=== PATIENT | female | born 1955 | race Caucasian/White ===

== ENCOUNTER → 2019-02-04 12:03 | Outpatient (CLI) | payer OTHER, SELFPAY | PROVIDERS: PCP Nurse Practitioner Family; Visit Provider Physician Assistant | DX: R31.9 Hematuria, unspecified (principal) | CPT/HCPCS: 87086 ==

== ENCOUNTER → 2019-02-22 07:10 | Outpatient (CLI) | payer OTHER, SELFPAY ==
[2019-02-22 07:30] LABS: Hematocrit 42.3 % (36-46); Hemoglobin 14.1 g/dL (12.0-16.0); Mean Corpuscular HGB Conc 33.3 % (30-36); Mean Corpuscular Hemoglobin 31.7 PG (26-34); Mean Corpuscular Volume 95.1 fL (80-100); Platelet Count 183 X10^3/uL (150-400); Red Blood Cell Count 4.45 X10^6/uL (4.0-5.2); Red Cell Distribution Width 13.6 % (11.6-14.8); White Blood Cell Count 6.7 X10^3/uL (4.5-11.0)
[2019-02-22 08:55] LABS: HEMOLYSIS < 15 (0-50); Iron 100 ug/dL (37-170)
[2019-02-22 09:02] LABS: Alanine Aminotransferase 13 IU/L (9-52); Albumin 4.2 g/dL (3.5-5.0); Albumin Globulin Ratio 1.4 (1.0-2.8); Alkaline Phosphatase 65 U/L (38-126); Aspartate Aminotransferase 24 IU/L (14-36); BUN Creatinine Ratio 22.5 (6-22); Bilirubin Total 1.2 mg/dL (0.2-1.3); Blood Urea Nitrogen 18 mg/dL (7-17); Calcium 9.7 mg/dL (8.4-10.2); Carbon Dioxide 27 mmol/L (22-32); Chloride 107 mmol/L (98-107); Estimated Glomerular Filt Rate > 60.0 mL/min (>60); Glucose 86 mg/dL (80-110); HEMOLYSIS < 15 (0-50); Sodium 142 mmol/L (137-145); Total Protein 7.2 g/dL (6.3-8.2)
[2019-02-22 09:07] LABS: Percent Iron Saturation 31 % (15-50); Total Iron Binding Capacity 325 ug/dL (265-497); Transferrin 259 mg/dL (206-381)
[2019-02-22 09:19] LABS: Vitamin D 25 Hydroxy (D3) 26.4 ng/mL (30.0-100.0)
[2019-02-22 09:28] LABS: TSH w/ Reflex to FT4 5.32 uIU/mL (0.47-4.68)
[2019-02-22 09:36] LABS: Ferritin 81.8 ng/mL (11.1-264)
[2019-02-22 09:53] LABS: Free T4, Direct Thyroxine 0.98 ng/dL (0.78-2.19)
[2019-02-22 10:06] LABS: Folate 7.9 ng/mL (2.76-20.0); Vitamin B12 385 pg/mL (239-931)
== END ==
PROVIDERS: Visit Provider Nurse Practitioner Family
DX: R53.83 Other fatigue (principal)
CPT/HCPCS: 36415; 80053; 82306; 82607; 82728; 82746; 83540; 83550; 84439; 84443; 85027

== ENCOUNTER → 2020-04-19 09:13 | Outpatient (CLI) | payer OTHER, SELFPAY ==
[2020-04-21 12:09] LABS: COVID19 Sendout Not Detected (Not Detect)
== END ==
PROVIDERS: PCP Registered Nurse Diabetes Educator; Visit Provider Physician Assistant
DX: Z11.59 Encounter for screening for other viral diseases (principal)
CPT/HCPCS: 87635

== ENCOUNTER 2020-04-22 07:04 | Day surgery (SDC) | payer OTHER, SELFPAY ==
[2020-04-22 07:27] VITALS: BP 97/56; PULSE 62; RESP 16; TEMP 36.3; O2SAT 100; BMI 20.1
--- NOTE | 2020-04-22 07:40 | P.OP_ITS ---
Operative Date/Time/Diagnoses Pre-op diagnosis: Nuclear Cataract Left eye Post-op diagnosis: same Procedure & Clinicians Same procedure as scheduled: Yes Surgeon: Brenton Roche Anesthesia Type: MAC +/- and Sedation Operative Notes Procedure in detail: Patient brought to the operating suite. Tetracaine drops placed in the left eye. Patient was prepped and draped in sterile manner. Wire lid speculum was placed in the eye. Betadine drops were placed on the eye. This was irrigated. Lidocaine jelly was placed on the eye. A paracentesis port was created with a side-port blade. 0.1 mL 1% preservative free lidocaine was injected into the anterior chamber. The anterior chamber was deepened with viscoelastic. 2.6 mm keratome was used to create a temporal clear corneal incision. Cystotome and Utrata forceps were used to create continuous tear capsulorrhexis. Balanced salt solution was used to hydro dissect the nucleus. The phacoemulsification handpiece was inserted and the nucleus was removed using the stop and chop technique. The irrigation aspiration handpiece was inserted and the remaining cortex was removed. Anterior chamber was deepened with viscoe lastic. An Martin ZCB00 intraocular lens with a power of 23.0 was injected into the capsular bag. Irrigation aspiration handpiece was inserted and the remaining viscoelastic was removed. Incision was hydrated with balanced salt solution and found to be leak free with pressure with Weck-Samantha sponges. 0.1 mL Vigamox injected anterior chamber. 0.3 mL Kenalog 10 mg was injected subconjunctivally. Lid speculum was removed. The patient left the operating room in excellent condition. Complications: none Post-operative Condition: stable Disposition: same day surgery
--- NOTE | 2020-04-22 07:40 | PM.PREOP ---
Pre-operative Note Interval Note History & Physical reviewed/Exam performed by Physician: Yes Changes to H&P: No
[2020-04-22] MEDS: PROPARACAINE 0.5% OPHTH SOL 2 DROPS EYE-OP (07:41)
[2020-04-22] MEDS: CATARACT EYE COMPOUND (10 DROPS/SYRINGE) 3 DROPS EYE-OP (07:42)
[2020-04-22] MEDS: MOXIFLOXACIN INJ 5 MG/ML VIAL EYE-OP (08:06)
[2020-04-22] MEDS: LIDOCAINE JELLY 2% 5 ML 1 APPLIC TOP (08:06)
[2020-04-22] MEDS: CHONDROIDTIN/SOD HYALURONATE 1.05 ML SYRINGE INTRAOCULA (08:06)
[2020-04-22] MEDS: PHENYLEPHRINE/LIDOCAINE VIAL (OR) 0.2 ML EYE-OP (08:07)
[2020-04-22] MEDS: BALANCED SALT IRRIG SOLN NO.2 500 ML, EPINEPHrine 1 MG IRR (08:07)
[2020-04-22] MEDS: TRIAMCINOLONE 50 MG/5 ML VIAL INJ (08:08)
[2020-04-22] MEDS: TETRACAINE 0.5% OPHTH DROPS 4 ML 2 DROPS EYE-OP (08:08)
[2020-04-22 08:20] VITALS: BP 112/60; PULSE 62; RESP 16; TEMP 36.6; O2SAT 100
== END 2020-04-22 08:34 | disposition home or self-care (01) ==
PROVIDERS: PCP Registered Nurse Diabetes Educator; Referring Provider Registered Nurse Diabetes Educator; Visit Provider Ophthalmology
PROC: (CPT 66984; principal; 2020-04-22 08:15)
DX: H25.12 Age-related nuclear cataract, left eye (principal)
CPT/HCPCS: 66984; J0171; J2250; J3301

== ENCOUNTER → 2020-05-03 14:45 | Outpatient (CLI) | payer OTHER, SELFPAY ==
[2020-05-04 16:19] LABS: COVID19 Sendout Not Detected (Not Detect)
== END ==
PROVIDERS: PCP Registered Nurse Diabetes Educator; Visit Provider Physician Assistant
DX: Z11.59 Encounter for screening for other viral diseases (principal)
CPT/HCPCS: 87635

== ENCOUNTER 2020-05-06 10:52 | Day surgery (SDC) | payer OTHER, SELFPAY ==
[2020-05-06] MEDS: PROPARACAINE 0.5% OPHTH SOL 2 DROPS EYE-OP (11:12)
[2020-05-06] MEDS: CATARACT EYE COMPOUND (10 DROPS/SYRINGE) 3 DROPS EYE-OP (11:12)
[2020-05-06 11:18] VITALS: BP 106/62; PULSE 68; RESP 16; TEMP 36.7; O2SAT 100
--- NOTE | 2020-05-06 12:13 | PM.PREOP ---
Pre-operative Note Interval Note History & Physical reviewed/Exam performed by Physician: Yes Changes to H&P: No
--- NOTE | 2020-05-06 12:13 | PM.OP.1 ---
Operative Date/Time/Diagnoses Pre-op diagnosis: Nuclear cataract right eye Procedure & Clinicians Procedure: Cataract Surgery Same procedure as scheduled: Yes Surgeon: Brenton Roche Anesthesia Type: MAC +/- and Sedation Operative Notes Procedure in detail: Patient brought to the operating suite. Tetracaine drops placed in the right eye. Patient was prepped and draped in sterile manner. Wire lid speculum was placed in the eye. Betadine drops were placed on the eye. This was irrigated. Lidocaine jelly was placed on the eye. A paracentesis port was created with a side-port blade. 0.1 mL 1% preservative free lidocaine was injected into the anterior chamber. The anterior chamber was deepened with viscoelastic. 2.6 mm keratome was used to create a temporal clear corneal incision. Cystotome and Utrata forceps were used to create continuous tear capsulorrhexis. Balanced salt solution was used to hydro dissect the nucleus. The phacoemulsification handpiece was inserted and the nucleus was removed using the stop and chop technique. The irrigation aspiration handpiece was inserted and the remaining cortex was removed. Anterior chamber was deepened with viscoelastic. An Martin ZCB00 intraocular lens with a power of 22.0 was injected into the capsular bag. Irrigation aspiration handpiece was inserted and the remaining viscoelastic was removed. Incision was hydrated with balanced salt solution and found to be leak free with pressure with Weck-Samantha sponges. 0.1 mL Vigamox injected anterior chamber. 0.3 mL Kenalog 10 mg was injected subconjunctivally. Lid speculum was removed. The patient left the operating room in excellent condition. Complications: none Post-operative Condition: stable Disposition: same day surgery
[2020-05-06] MEDS: CHONDROIDTIN/SOD HYALURONATE 1.05 ML SYRINGE INTRAOCULA (12:37)
[2020-05-06] MEDS: TETRACAINE 0.5% OPHTH DROPS 4 ML 2 DROPS EYE-OP (12:38)
[2020-05-06] MEDS: LIDOCAINE JELLY 2% 5 ML 1 APPLIC TOP (12:38)
[2020-05-06] MEDS: MOXIFLOXACIN INJ 5 MG/ML VIAL EYE-OP (12:38)
[2020-05-06] MEDS: PHENYLEPHRINE/LIDOCAINE VIAL (OR) 0.2 ML EYE-OP (12:38)
[2020-05-06] MEDS: BALANCED SALT IRRIG SOLN NO.2 500 ML, EPINEPHrine 1 MG IRR (12:39)
[2020-05-06] MEDS: TRIAMCINOLONE 50 MG/5 ML VIAL INJ (12:39)
[2020-05-06 12:46] VITALS: BP 106/62; PULSE 368; RESP 16; TEMP 36.7; O2SAT 100
== END 2020-05-06 13:01 | disposition home or self-care (01) ==
PROVIDERS: PCP Registered Nurse Diabetes Educator; Referring Provider Ophthalmology; Visit Provider Ophthalmology
PROC: (CPT 66984; principal; 2020-05-06 12:45)
DX: H25.11 Age-related nuclear cataract, right eye (principal); J45.909 Unspecified asthma, uncomplicated
CPT/HCPCS: 66984; J0171; J2250; J3301

== ENCOUNTER → 2020-05-20 12:33 | Outpatient (CLI) | payer OTHER, SELFPAY ==
--- NOTE | 2020-05-20 12:34 | DI.RAD.S_ITS ---
PROCEDURE: XR SHOULDER LT MIN 2V INDICATIONS: L shoulder pain s/p injury 2 weeks ago TECHNIQUE: 3 views of the shoulder were acquired. COMPARISON: None. FINDINGS: Bones: No acute fractures or dislocations. Mild degenerative changes of the acromioclavicular and glenohumeral joints. Coracoclavicular and acromioclavicular intervals are maintained. No suspicious bony lesions. Visualized ribs appear intact. Soft tissues: No suspicious soft tissue calcifications. IMPRESSION: Left shoulder without acute osseous abnormalities. Mild degenerative changes of the left acromioclavicular and glenohumeral joints. Dictated by: Jorge A Luna M.D. on 05/20/2020 at 16:59 Approved by: Jorge A Luna M.D. on 05/20/2020 at 17:00
== END ==
PROVIDERS: PCP Registered Nurse Diabetes Educator; Referring Provider Registered Nurse Diabetes Educator; Visit Provider Registered Nurse Diabetes Educator
DX: M25.512 Pain in left shoulder (principal)
CPT/HCPCS: 73030

== ENCOUNTER → 2021-02-26 16:47 | Outpatient (CLI) | payer OTHER, SELFPAY ==
--- NOTE | 2021-02-26 16:49 | DI.RAD.S_ITS ---
PROCEDURE: XR KNEE RT 3V INDICATIONS: right knee pain/injury TECHNIQUE: 3 views of the knee were acquired. COMPARISON: None. FINDINGS: Bones: No fractures or dislocations. No suspicious bony lesions. Soft tissues: Moderate size suprapatellar joint effusion. No soft tissue calcifications. IMPRESSION: 1. Suprapatellar joint effusion. Consider internal derangement. MRI would be helpful for further evaluation. 2. No fracture. Dictated by: Jose R Henderson M.D. on 02/27/2021 at 10:55 Approved by: Jose R Henderson M.D. on 02/27/2021 at 10:57
== END ==
PROVIDERS: PCP Registered Nurse Diabetes Educator; Referring Provider Registered Nurse; Visit Provider Registered Nurse
DX: S89.91XA Unspecified injury of right lower leg, initial encounter (principal); M25.561 Pain in right knee; M25.461 Effusion, right knee; X58.XXXA Exposure to other specified factors, initial encounter
CPT/HCPCS: 73562

== ENCOUNTER → 2021-03-17 17:23 | Outpatient (CLI) | payer OTHER, SELFPAY ==
--- NOTE | 2021-03-17 17:26 | DI.MRI.S_ITS ---
PROCEDURE: MR KNEE RT WO CON INDICATIONS: right knee pain/ effusion indicated TECHNIQUE: Noncontrast sagittal PD fast spin echo and T2 fast spin echo with fat saturation, sagittal 3-D FLASH with fat saturation; coronal T1 spin echo and PD fast spin echo with fat saturation, and axial PD fast spin echo with fat saturation through the knee. COMPARISON: [facility], CR, XR KNEE RT 3V, 02/26/2021, 16:46. FINDINGS: Menisci: Medial meniscus: Medial meniscal tear involving the body and posterior horn with abnormal signal extending to the inferior articular surface and slight partial extrusion. Lateral meniscus: Intact. Cruciate ligaments: Anterior cruciate ligament: Intact. Posterior cruciate ligament: Intact. Medial structures: The medial collateral ligament: There is medial bowing of the medial collateral ligament, with mild internal signal changes and no complete rupture. There is adjacent soft tissue edema. The appearance could reflect reactive changes to medial compartment pathology, versus low-grade sprain of the MCL. Semimembranosus tendon: Intact. Visualized pes anserinus tendons: Intact. Bursal fluid: Minimal bursal fluid raising possibility of low-grade bursitis Lateral structures: The lateral collateral ligament intact. Biceps femoris tendon appears intact. Popliteus tendon grossly unremarkable. Iliotibial band appears intact. Anterior structures: Quadriceps tendon: Intact. Medial patellofemoral ligament: Intact. Lateral patellofemoral ligament: Intact. Patellar tendon: Mild tendinopathy. Anterior soft tissues: Prepatellar and superficial infrapatellar subcutaneous edema/fluid. Deep infrapatellar region: Normal. Bones and cartilage: Marrow: No focal marrow contusion or discrete low signal fracture line. Medial compartment: Minimal surface fraying of the central weight-bearing femoral and tibial cartilage. Lateral compartment: Minimal surface fraying of the central weight-bearing femoral cartilage. Patellofemoral compartment: No chondral defect identified. Joint space: Effusion: Small to moderate joint effusion. Popliteal fossa: Baxter's cyst is seen measuring approximately 8 cm in the cephalocaudal dimension and may be partially ruptured. Loose bodies: None. IMPRESSION: Medial meniscal tear involving the body and posterior horn with partial extrusion. Adjacent MCL changes as above. Minimal joint degeneration Small to moderate joint effusion Baxter's cyst as above. Low-grade pes anserinus bursitis. Patellar tendinopathy Dictated by: Bishop Rodriguez M.D. on 03/18/2021 at 10:17 Approved by: Bishop Rodriguez M.D. on 03/18/2021 at 10:42
== END ==
PROVIDERS: PCP Registered Nurse Diabetes Educator; Referring Provider Registered Nurse; Visit Provider Registered Nurse
DX: S89.91XA Unspecified injury of right lower leg, initial encounter (principal); S83.241A Other tear of medial meniscus, current injury, right knee, initial encounter; M25.461 Effusion, right knee; M71.21 Synovial cyst of popliteal space [Baker], right knee; M71.561 Other bursitis, not elsewhere classified, right knee; X58.XXXA Exposure to other specified factors, initial encounter
CPT/HCPCS: 73721

== ENCOUNTER → 2021-05-20 10:37 | Outpatient (CLI) | payer OTHER, SELFPAY ==
[2021-05-20 17:11] LABS: COVID19 -Nasal RAPID Negative (Negative)
== END ==
PROVIDERS: PCP Registered Nurse Diabetes Educator; Referring Provider Obstetrics & Gynecology; Visit Provider Obstetrics & Gynecology
DX: Z20.822 Contact with and (suspected) exposure to COVID-19 (principal); Z01.812 Encounter for preprocedural laboratory examination
CPT/HCPCS: 87635

== ENCOUNTER 2021-05-21 10:20 | Day surgery (SDC) | payer OTHER, SELFPAY ==
[2021-05-13 14:02] VITALS: BMI 20.2
[2021-05-21] VITALS (8 sets, daily range): BP systolic 93–126; BP diastolic 52–74; PULSE 61–89; RESP 14–20; TEMP 36.1–37; O2SAT 91–100; BMI 20.2
[2021-05-21] MEDS: LACTATED RINGERS 1,000 ML 100 ML IV ×2 (10:51→13:31)
--- NOTE | 2021-05-21 12:17 | PM.HP.1 ---
History of Present Illness History of Present Illness Date Patient Seen: 05/21/21 Time Patient Seen: 12:18 Chief complaint: SDC Narrative: Patient is a 66-year-old 0 with perirectal condyloma acuminata. She presents for a CO2 laser vaporization of the perirectal condyloma. Patient History Medical History (Updated 04/13/21 @ 11:33 by Alexandra Chopra MD) Anal warts Bilateral cataracts Hair loss Right knee injury Surgical History (Updated 05/13/21 @ 14:10 by Belinda Amado RN) History of bilateral breast implants Hx of bilateral cataract extraction (2019) Family & Social History Social History: household members significant other Tobacco & Substance use: Tobacco type cigarettes Smoking Status Current every day smoker Smoking packs per day 1 alcohol intake current alcohol intake frequency a few times a month Substance Use Type does not use Meds Home Medications and Allergies Home Medications Medication Instructions Recorded Confirmed Type albuterol sulfate 90 mcg/actuation 2 puff INHALATION Q4-6H PRN #8.5 03/11/20 05/13/21 Rx aerosol inhaler gram beclomethasone dipropionate 40 1 inh INHALATION BID #10.6 gram 03/11/20 05/13/21 Rx mcg/actuation HFA breath activated aerosol (Qvar RediHaler) estradiol 1 mg tablet 1 mg PO QDAY #90 tab 03/11/20 05/13/21 Rx medroxyprogesterone 2.5 mg tablet 2.5 mg PO QDAY #90 tab 03/11/20 05/13/21 Rx cholecalciferol (vitamin D3) 50 1,000 unit PO DAILY 05/06/20 05/13/21 History mcg (2,000 unit) capsule Calcium PO 02/24/21 04/13/21 History Vitamin B Complex PO 02/24/21 04/13/21 History Vitamin D3 PO 02/24/21 04/13/21 History Allergies Allergy/AdvReac Type Severity Reaction Status Date / Time No Known Drug Allergies Allergy Verified 04/13/21 10:37 Exam Vital Signs (past 8 hours): - 05/21/21 10:35 Temperature 98.6 F Pulse Rate 63 Respiratory Rate 16 Blood Pressure 126/73 Pulse Oximetry 97 Oxygen Delivery Method Room Air Narrative Exam Narrative: HEENT: No thyromegaly, no anterior cervical or supraclavicular lymphadenopathy. Lungs:Clear to auscultation bilaterally, no wheezes. Cardiovascular: Regular rate and rhythm, no murmurs, rubs, or gallops. Abdomen: No scars. No hepatosplenomegaly. No masses palpable. External genitalia: No condyloma of the vulva or perirectal area. Vagina: No condyloma Cervix: No condyloma Bimanual exam: 6 Week size anterior uterus. Mobile. Rectal area: Approximately 100 lesions ranging from 2-5 mm. Assessment & Plan Assessment & Plan narrative: Assessment: 66-year-old 0 with condyloma acuminata of the perirectal area, approximately 100 lesions Plan: CO2 vaporization of the condyloma acuminata of the perirectal area The risks, benefits, and alternatives to the procedure were explained to the patient. The risks including bleeding, and infection. The patient understands these risks and agrees to proceed. A full par Q was held and consent form was signed. COVID-19 COVID-19 status: Negative Result date/Date tested (Pos, Neg/Pending): 05/20/21 Time Spent With Patient Time with patient: less than 30 minutes Critical Care time: I spent a total of [] minutes of critical care time on this patient's care today; this time is exclusive of procedural time.
--- NOTE | 2021-05-21 12:22 | PM.PREOP ---
Pre-operative Note COVID-19 COVID-19 status: Negative Result date/Date tested (Pos, Neg/Pending): 05/20/21 Interval Note History & Physical reviewed/Exam performed by Physician: Yes Changes to H&P: No H&P completed within 30 days and has changed as indicated here:: 05/21/21
--- NOTE | 2021-05-21 13:14 | SUR.OPER ---
Lithotomy on padded OR bed, head on pillow, arms secured on padded arm boards at <90 degrees abduction. Legs secured in padded yellow fins stirrups.
[2021-05-21] MEDS: SILVER SULFADIAZINE 1% CREAM 25 GM 1 APPLIC TOP (13:23)
--- NOTE | 2021-05-21 13:46 | PM.GYNOP.1 ---
Operative Date/Time/Diagnoses Date of procedure: 05/21/21 Time of procedure: 13:46 Pre-op diagnosis: Perirectal condyloma acuminata 100+ lesions Post-op diagnosis: same Procedure & Clinicians Procedure: Procedures Operation Date: 05/21/21 11:45 Actual Procedure Side Surgeon p C02 laser vaporation of perianal condyloma Alexandra Chopra MD Indications: 100+ perirectal condyloma accuminata Surgeon: Alexandra Chopra Anesthesia Type: General ( LMA) Operative Notes Findings: 100+ condyloma accuminata of the perirectal area, ranging in size from 2-5mm Closure Type: not applicable Specimen(s): none Estimated blood loss (mL): 3 Blood products transfused: none Procedure in detail: After informed consent was obtained, the patient was taken to the operating room where she was placed in the dorsal supine position. After adequate LMA general anesthesia was achieved, she was placed in the dorsal lithotomy position, and prepped and draped in the usual sterile fashion. Moistened Gelfoam was placed into the rectum. She was prepped in the usual fashion. She was draped with wet blue towels and then a lithotomy draped. Using the CO2 laser with a continuous wave and 8 w, 100+ condyloma acuminata ranging in size from 2-5 mm were vaporized. The eschar was wiped away With a wet 4 x 4 until pink underlying tissue was visible. Duration was continuous. Total energy used was 5623.7 joules. Total time was 703.9 seconds. At the completion of the procedure, Silvadene cream was placed over the wound. The Gelfoam was removed from the rectum. lap, and instrument counts were correct x2. The patient tolerated the procedure well, and was taken to PACU in stable condition. Complications: none Post-operative Condition: stable Disposition: PACU Plan for aftercare: Home after recovery
[2021-05-21] MEDS: OXYCODONE/ACETAMINOPHEN 5/325 TABLET 1 TAB PO (14:06)
== END 2021-05-21 15:10 | disposition home or self-care (01) ==
PROVIDERS: PCP Registered Nurse Diabetes Educator; Referring Provider Obstetrics & Gynecology; Visit Provider Obstetrics & Gynecology
PROC: 0UBC7ZZ Excision of Cervix, Via Natural or Artificial Opening (ICD-10-PCS; CPT 57522; principal; 2021-05-21 11:45)
DX: A63.0 Anogenital (venereal) warts (principal); F17.210 Nicotine dependence, cigarettes, uncomplicated
CPT/HCPCS: 46924; J1100; J1885; J2405; J2704; J3010

== ENCOUNTER → 2021-06-02 15:23 | Outpatient (CLI) | payer OTHER, SELFPAY ==
[2021-06-02 16:08] LABS: Add Manual Diff / Slide Review NO; Basophils Absolute Auto 100 /uL (0-100); Basophils Percent Auto 0.8 % (0-2); Eosinophils Absolute Auto 300 /uL (0-450); Eosinophils Percent Auto 3.5 % (2-4); Hematocrit 41.6 % (36-46); Hemoglobin 13.8 g/dL (12.0-16.0); Lymphocytes Absolute Auto 2500 /uL (1100-4500); Lymphocytes Percent Auto 31.8 % (25-40); Mean Corpuscular HGB Conc 33.1 % (30-36); Mean Corpuscular Hemoglobin 31.4 PG (26-34); Mean Corpuscular Volume 94.7 fL (80-100); Monocytes Absolute Auto 600 /uL (0-900); Monocytes Percent Auto 7.2 % (3-14); Neutrophils Absolute Auto 4500 /uL (1500-7000); Neutrophils Percent Auto 56.7 % (50-75); Platelet Count 188 X10^3/uL (150-400); Red Blood Cell Count 4.39 X10^6/uL (4.0-5.2); Red Cell Distribution Width 13.5 % (11.6-14.8); White Blood Cell Count 7.9 X10^3/uL (4.5-11.0)
[2021-06-02 16:17] LABS: Alanine Aminotransferase 11 IU/L (<35); Albumin 4.1 g/dL (3.5-5.0); Albumin Globulin Ratio 1.4 (1.0-2.8); Alkaline Phosphatase 70 U/L (38-126); Aspartate Aminotransferase 23 IU/L (14-36); BUN Creatinine Ratio 21.9 (6-22); Bilirubin Total 0.6 mg/dL (0.2-1.3); Blood Urea Nitrogen 16 mg/dL (7-17); Calcium 9.7 mg/dL (8.4-10.2); Carbon Dioxide 28 mmol/L (22-32); Chloride 108 mmol/L (98-107); Estimated Glomerular Filt Rate > 60.0 mL/min (>60); Globulin 2.9 g/dL (1.7-4.1); Glucose 98 mg/dL (80-110); HEMOLYSIS < 15 (0-50); Potassium 4.1 mmol/L (3.4-5.1); Sodium 141 mmol/L (137-145)
== END ==
PROVIDERS: PCP Registered Nurse Diabetes Educator; Referring Provider Registered Nurse; Visit Provider Registered Nurse
DX: R23.2 Flushing (principal); Z79.899 Other long term (current) drug therapy
CPT/HCPCS: 36415; 80053; 85025

== ENCOUNTER → 2022-01-20 09:11 | Outpatient (CLI) | payer OTHER, SELFPAY ==
--- NOTE | 2022-01-20 09:15 | DI.RAD.S_ITS ---
PROCEDURE: XR TMJ RT INDICATIONS: eval R TMJ symptoms TECHNIQUE: 4 view(s) of the right TMJ acquired. COMPARISON: None. FINDINGS: Bones: No fractures or dislocations. No suspicious bony lesions. Soft tissues: No suspicious soft tissue calcifications. IMPRESSION: No fracture. No osseous lesion. If symptoms and/or clinical suspicion for pathology persists, further assessment with TMJ MRI. Dictated by: Mikayla Brown MD, PhD on 01/20/2022 at 12:42 Approved by: Mikayla Brown MD, PhD on 01/20/2022 at 12:43
== END ==
PROVIDERS: PCP Registered Nurse Diabetes Educator; Referring Provider Registered Nurse Diabetes Educator; Visit Provider Registered Nurse Diabetes Educator
DX: M26.621 Arthralgia of right temporomandibular joint (principal)
CPT/HCPCS: 70330

== ENCOUNTER → 2023-03-16 14:18 | Outpatient (CLI) | payer OTHER, SELFPAY ==
--- NOTE | 2023-03-16 14:19 | DI.RAD.S_ITS ---
PROCEDURE: XR FOOT RT MIN 3V INDICATIONS: Foot pain TECHNIQUE: 3 views of the foot were acquired. COMPARISON: None. FINDINGS: Bones: Fracture at the base of the 5th metatarsal. No suspicious bony lesions. Mild joint space loss of the interphalangeal joints. Soft tissues: No tibiotalar joint effusion. Achilles tendon appears normal. IMPRESSION: Fracture of the base of the 5th metatarsal. Dictated by: Ehsan Lopez M.D. on 03/16/2023 at 16:46 Approved by: Ehsan Lopez M.D. on 03/16/2023 at 16:49
== END ==
PROVIDERS: PCP Registered Nurse Diabetes Educator; Referring Provider Nurse Practitioner Family; Visit Provider Nurse Practitioner Family
DX: S92.351A Displaced fracture of fifth metatarsal bone, right foot, initial encounter for closed fracture (principal); M79.671 Pain in right foot
CPT/HCPCS: 73630

== ENCOUNTER → 2023-05-27 10:36 | Outpatient (CLI) | payer OTHER, SELFPAY ==
--- NOTE | 2023-05-27 10:39 | DI.RAD.S_ITS ---
Bone Density Report Name: MERLYN ELLIOTT Age: 68 Sex: Female Ethnicity: White Date of : 1955 Indication: postmenopausal; screening for osteoporosis; Referring Provider: AMADEO BIRMINGHAM Study: Bone densitometry was performed. Exam Date: May 27, 2023 Accession number: [id number] Bone Density: Region BMD T-score Z-score Classification AP Spine(L1, L2, L3) 0.732 -2.6 -0.6 Osteoporosis Femoral Neck (Left) 0.592 -2.3 -0.6 Osteopenia Total Hip (Left) 0.730 -1.7 -0.3 Osteopenia Femoral Neck (Right) 0.636 -1.9 -0.2 Osteopenia Total Hip (Right) 0.726 -1.8 -0.3 Osteopenia Total Hip Mean 0.728 -1.8 -0.3 Osteopenia World Health Organization criteria for BMD impression classify patients as: Normal (T-score at or above -1.0), Osteopenia (T-score between -1.0 and -2.5), or Osteoporosis (T-score at or below -2.5). 10-year Fracture Risk: FRAX not reported because: Some T-score for Spine Total or Hip Total or Femoral Neck at or below -2.5 Impression: The patient has osteoporosis, based on the Total Spine T-score. Discussion: INCREASED RISK OF FRACTURE. BONE DENSITY IS UNDESIRABLY LOW AT ONE OR MORE SKELETAL SITES, CONSISTENT WITH POSTMENOPAUSAL OSTEOPOROSIS. This patient's lowest T-score meets the World Health Organization's (WHO) criteria for osteoporosis at one or more sites (T-score -2.5 or below). In untreated patients, the risk of osteoporotic fracture increases approximately two-fold for each 1.0 SD decrease in T-score. Low bone density is not the only risk factor for fracture; also consider factors such as patient's age, frailty or poor health, risk of falling, risk of injury, previous osteoporotic fracture, family history of osteoporosis, cigarette smoking, low body weight, etc. Not everyone with low bone mineral density has osteoporosis; osteomalacia and other metabolic bone disorders should also be considered. Patients who have osteoporosis should be evaluated for specific diseases and conditions (secondary causes) that may cause or contribute to bone loss. The [place] [employer] (AACE) and National Osteoporosis Foundation (NOF) recommend pharmacologic intervention for all postmenopausal women whose T-score is in this range. The patient should follow a healthful lifestyle (good nutrition with adequate calcium and vitamin D, and appropriate weight-bearing exercise). Follow-Up: Consider a repeat BMD and Vertebral Fracture Assessment (VFA) exam in 2 years or sooner if medically necessary, to reassess this patient's status. Reported by: ALIDA BRANCH M.D. on 05/27/2023 11:10:00 AM.
== END ==
PROVIDERS: PCP Registered Nurse Diabetes Educator; Referring Provider Registered Nurse Diabetes Educator; Visit Provider Registered Nurse Diabetes Educator
DX: N95.9 Unspecified menopausal and perimenopausal disorder (principal); M85.89 Other specified disorders of bone density and structure, multiple sites; M81.0 Age-related osteoporosis without current pathological fracture
CPT/HCPCS: 77080

== ENCOUNTER → 2023-06-01 16:41 | Outpatient (CLI) | payer OTHER, SELFPAY ==
[2023-06-01 18:18] LABS: Add Manual Diff / Slide Review NO; Basophils Absolute Auto 100 /uL (0-100); Basophils Percent Auto 0.8 % (0-2); Eosinophils Absolute Auto 100 /uL (0-450); Eosinophils Percent Auto 0.7 % (2-4); Hematocrit 41.1 % (36-46); Hemoglobin 13.8 g/dL (12.0-16.0); Lymphocytes Absolute Auto 2600 /uL (1100-4500); Lymphocytes Percent Auto 32.8 % (25-40); Mean Corpuscular HGB Conc 33.7 % (30-36); Mean Corpuscular Hemoglobin 31.4 PG (26-34); Mean Corpuscular Volume 93.1 fL (80-100); Monocytes Absolute Auto 400 /uL (0-900); Monocytes Percent Auto 5.2 % (3-14); Neutrophils Absolute Auto 4700 /uL (1500-7000); Neutrophils Percent Auto 60.5 % (50-75); Platelet Count 168 X10^3/uL (150-400); Red Blood Cell Count 4.41 X10^6/uL (4.0-5.2); Red Cell Distribution Width 13.2 % (11.6-14.8); White Blood Cell Count 7.8 X10^3/uL (4.5-11.0)
[2023-06-01 18:54] LABS: Alanine Aminotransferase 17 IU/L (<35); Albumin 4.3 g/dL (3.5-5.0); Albumin Globulin Ratio 1.3 (1.0-2.8); Alkaline Phosphatase 88 U/L (38-126); Aspartate Aminotransferase 36 IU/L (14-36); BUN Creatinine Ratio 26.2 (6-22); Bilirubin Total 1.2 mg/dL (0.2-1.3); Blood Urea Nitrogen 17 mg/dL (7-17); Calcium 9.6 mg/dL (8.4-10.2); Carbon Dioxide 25 mmol/L (22-32); Chloride 103 mmol/L (98-107); Estimated Glomerular Filt Rate > 60 mL/min (>60); Globulin 3.3 g/dL (1.7-4.1); Glucose 85 mg/dL (80-110); Potassium 4.7 mmol/L (3.4-5.1); Sodium 136 mmol/L (137-145); Total Protein 7.6 g/dL (6.3-8.2)
[2023-06-01 18:57] LABS: HEMOLYSIS 82 (0-50)
[2023-06-01 19:07] LABS: Vitamin D 25 Hydroxy (D3) 31.2 ng/mL (30.0-100.0)
== END ==
PROVIDERS: PCP Registered Nurse Diabetes Educator; Referring Provider Physician Assistant; Visit Provider Physician Assistant
DX: E11.9 Type 2 diabetes mellitus without complications (principal); M81.0 Age-related osteoporosis without current pathological fracture
CPT/HCPCS: 36415; 80053; 82306; 85025

== ENCOUNTER → 2024-09-11 16:25 | Outpatient (CLI) | payer OTHER, SELFPAY ==
[2024-09-11 16:44] LABS: Hematocrit 43.6 % (36-46); Hemoglobin 14.3 g/dL (12.0-16.0); Mean Corpuscular HGB Conc 32.7 % (30-36); Mean Corpuscular Hemoglobin 30.5 PG (26-34); Mean Corpuscular Volume 93.2 fL (80-100); Platelet Count 198 X10^3/uL (150-400); Red Blood Cell Count 4.68 X10^6/uL (4.0-5.2); Red Cell Distribution Width 14.4 % (11.6-14.8); White Blood Cell Count 7.5 X10^3/uL (4.5-11.0)
[2024-09-11 17:07] LABS: Alanine Aminotransferase 20 IU/L (<35); Albumin 4.5 g/dL (3.5-5.0); Albumin Globulin Ratio 1.3 (1.0-2.8); Alkaline Phosphatase 101 U/L (38-126); Aspartate Aminotransferase 36 IU/L (14-36); BUN Creatinine Ratio 20.3 (6-22); Blood Urea Nitrogen 16 mg/dL (7-17); Carbon Dioxide 29 mmol/L (22-32); Chloride 103 mmol/L (98-107); Estimated Glomerular Filt Rate > 60 mL/min (>60); Globulin 3.4 g/dL (1.7-4.1); Glucose 108 mg/dL (80-110); HEMOLYSIS 15 (0-50); Sodium 139 mmol/L (137-145); Total Protein 7.9 g/dL (6.3-8.2)
[2024-09-11 17:09] LABS: HEMOLYSIS < 15 (0-50); Iron 44 ug/dL (37-170)
[2024-09-11 17:20] LABS: Percent Iron Saturation 14 % (15-50); Total Iron Binding Capacity 319 ug/dL (265-497); Transferrin 312 mg/dL (206-381)
[2024-09-11 17:24] LABS: Vitamin D 25 Hydroxy (D3) 37.6 ng/mL (30.0-100.0)
[2024-09-11 17:26] LABS: Free T4, Direct Thyroxine 0.96 ng/dL (0.78-2.19)
[2024-09-11 17:40] LABS: Thyroid Stimulating Hormone 2.16 uIU/mL (0.47-4.68)
[2024-09-11 17:42] LABS: Ferritin 30 ng/mL (11-264)
== END ==
PROVIDERS: PCP Registered Nurse Diabetes Educator; Referring Provider Registered Nurse Diabetes Educator; Visit Provider Registered Nurse Diabetes Educator
DX: R79.89 Other specified abnormal findings of blood chemistry (principal); L65.0 Telogen effluvium; M81.0 Age-related osteoporosis without current pathological fracture; L65.9 Nonscarring hair loss, unspecified; Z51.81 Encounter for therapeutic drug level monitoring
CPT/HCPCS: 36415; 80053; 82306; 82728; 83540; 83550; 84439; 84443; 85027

== ENCOUNTER → 2025-05-16 12:52 | Outpatient (CLI) | payer OTHER, SELFPAY ==
[2025-05-19 20:36] LABS: Bact Vaginosis-Assoc. bacteria Low - 0 Score (.); Candida albicans, NAA Negative (Negative); Candida glabrata Positive (Negative); Trichomoas vaginalis by NAA Negative (Negative)
== END ==
PROVIDERS: PCP Registered Nurse Diabetes Educator; Visit Provider Physician Assistant
DX: N89.8 Other specified noninflammatory disorders of vagina (principal)
CPT/HCPCS: 81515; 87491; 87591

== ENCOUNTER → 2025-06-06 15:16 | Outpatient (CLI) | payer OTHER, SELFPAY ==
--- NOTE | 2025-06-06 15:17 | DI.US.S_ITS ---
PROCEDURE: US PELVIC COMPLETE INDICATIONS: Post menopausal bleeding TECHNIQUE: Real-time scanning was performed of the pelvic organs, with image documentation. Additional endovaginal scanning was necessary due to incomplete visualization of the adnexal and endometrial structures by transabdominal scanning. COMPARISON: None. FINDINGS: Uterus: Uterus is anteverted and normal in size at 6.9 x 5.4 x 3.4 cm. The myometrium is homogeneous. The endometrium measures 3 mm combined thickness. Anterior intramural fibroid measuring 1.4 cm and posterior subserosal fibroid measuring 1.3 cm. Ovaries: Right ovary measures 2.3 x 1 4 x 1.0 cm and left ovary measures 3.3 x 2.0 x 1.0 cm. Simple left ovarian cyst measuring 1.4 cm. Mildly complex serpiginous tubular structure seen within the right adnexa which may represent a small hydrosalpinx. Other: No pathologic free abdominal or pelvic fluid. IMPRESSION: 1. Endometrial complex within normal limits at 3 mm. 2. 2 uterine fibroids, largest measuring 1.3 cm. 3. Simple left ovarian cyst measuring 1.4 cm. 4. Possible small hydrosalpinx within the right adnexa measuring up to 1.4 cm. 6 week follow-up ultrasound recommended to assess for temporal change and/or resolution. We strive to produce accurate, complete, and clear reports of imaging services. To assist us in improving patient care, this report was composed using standard report templates and voice recognition software. Therefore, it may contain abnormal punctuation, insertions and/or omissions. Occasional wrong-word or sound-alike substitutions may occur. Though we review the report and make efforts to correct it, we do recommend that the report be read carefully in proper context to recognize any text inaccuracies. Dictated by: Hudson Chang [facility] Interpreted: Teddy Pena MD on 06/06/2025 at 16:08 Transcribed by: RODDY on 06/06/2025 at 16:17 Approved by: Teddy Pena M.D. on 06/06/2025 at 17:06
== END ==
LOC: US 15:16
PROVIDERS: PCP Registered Nurse Diabetes Educator; Referring Provider Registered Nurse Diabetes Educator; Visit Provider Physician Assistant
DX: N95.0 Postmenopausal bleeding (principal); D25.1 Intramural leiomyoma of uterus; D25.2 Subserosal leiomyoma of uterus; N83.292 Other ovarian cyst, left side
CPT/HCPCS: 76830; 76856

== ENCOUNTER → 2025-07-02 09:26 | Outpatient (CLI) | payer OTHER, SELFPAY ==
[2025-07-03 13:36] LABS: Trichomoas vaginalis Negative (Negative)
== END ==
PROVIDERS: PCP Registered Nurse Diabetes Educator; Visit Provider Obstetrics & Gynecology
DX: N89.8 Other specified noninflammatory disorders of vagina (principal)
CPT/HCPCS: 81514